=== PATIENT | male | born 2000 | race Caucasian/White ===

== ENCOUNTER 2025-05-08 12:17 | Emergency (ER) | payer OTHER, SELFPAY ==
--- NOTE | 2025-05-08 12:19 | ED_ITS ---
HPI - Eye Problem General Chief complaint: Eye Problems Stated complaint: LT Eye Problems Time Seen by Provider: 05/08/25 12:18 Source: patient Mode of arrival: ambulatory Limitations: no limitations History of Present Illness HPI Narrative: Wilfredo is a 25 year old male patient presenting to the clinic today with c/o left eye issues. He reports he felt as though he may have gotten an eyelash stuck in his eye this morning after he woke up. States he now was having some light sensitivity and tearing. Thinks he may have scratched his eye. Visual acuity 20/50 in the left and 20/20 in the right. Has not tried any treatments to alleviate his symptoms other than pulling at eye lashes Review of Systems Review of Systems: Pertinent positives per HPI. Patient denies any fever, chills, rash, headache, visual changes, dizziness, cough, runny nose, sore throat, shortness of breath, chest pain, palpitations, nausea, vomiting, diarrhea, constipation, abdominal pain, or any urinary issues. PMFSH Comments At the time of my signature, I reviewed and agree with the nursing past medical, surgical, social, and family history. There is no relevant family history pertinent to the patient complaint. Exam Narrative: General: Well-developed, well nourished, in no apparent distress Head: Normocephalic, atraumatic Eyes: Pupils equally round and reactive to light bilaterally, EOM intact, sclera and conjunctive clear, no discharge, left upper lid mildly swelling, no sign of stye, Wood's lamp exam was performed and shows no sign corneal abrasion, Baldemar sign, or foreign body in the left eye Ears: TMs intact and clear, ear canals clear, no drainage, grossly hearing normal. Nose: Nares patent, no discharge, no inflammation, no sinus tenderness. Mouth: Oropharynx without lesions or masses, good dentition, MMM. Neck: Supple, trachea midline, no enlargement of anterior or posterior cervical nodes, no thyroid masses or goiter palpable. Cardio: Regular rate and rhythm, s1 and s2 normal, no murmur appreciated. Resp: Clear to auscultation bilaterally anteriorly and posteriorly, no rhonchi, rales, wheezing or rubs Course Course Emergency Course: Portions of this record may have been created with voice recognition software. Level of Care: Express Care Visit Vital Signs Vital signs: Vital Signs Temperature 36.4 C L 05/08/25 12:28 Pulse Rate 60 05/08/25 12:28 Respiratory Rate 18 05/08/25 12:28 Blood Pressure 128/77 05/08/25 12:28 Pulse Oximetry 99 05/08/25 12:28 Oxygen Delivery Room Air 05/08/25 12:28 Temperature 36.4 C L 05/08/25 12:28 Pulse Rate 60 05/08/25 12:28 Respiratory Rate 18 05/08/25 12:28 Blood Pressure 128/77 05/08/25 12:28 Pulse Oximetry 99 05/08/25 12:28 Oxygen Delivery Room Air 05/08/25 12:28 Vital signs reviewed Procedures Other Procedure Procedure 1: Other Procedure: Two drops of topical tetracaine anesthetic was instilled with good anesthesia. Fluorescein stain of the left eye was performed without uptake of dye. No epithelial defect was noted. NO FB, ulcer or dendritic lesions. Upper lid was everted and no FB or lesions were noted. NO Baldemar sign. Normal saline irri gation eye solution was performed and the patient tolerated the procedure well, no adverse reaction or complications. MDM - Eye Problem MDM Narrative Medical decision making narrative: At the time of visit patient is resting comfortably on the exam table. Patient appears to be nontoxic. c/o left eye issues. He reports he felt as though he may have gotten an eyelash stuck in his eye this morning after he woke up. States he now was having some light sensitivity and tearing. Thinks he may have scratched his eye. Visual acuity 20/50 in the left and 20/20 in the right. Has not tried any treatments to alleviate his symptoms other than pulling at eye lashes. Wood's lamp eye exam ordered. Procedure: Wood's lamp exam was performed and shows no sign of corneal abrasion, no Baldemar sign, no visualized foreign body in the left eye Plan: I suspect patient has left eye irritation. Recommend artificial tears and using eye wash as needed. Patient's symptoms have resolved at this time after using the tetracaine. Supportive measures were discussed with the patient and they voiced understanding discharge instructions and agrees to treatment plan. Return precautions reviewed Differential Diagnosis Differential diagnosis: Likely corneal abrasion, conjunctivitis, acute iritis, hyphema, periorbital cellulitis, subconjunctival hemorrhage, glaucoma, corneal ulcer and ruptured globe Discharge Plan Discharge Clinical Impression: Corneal irritation of left eye, Foreign body sensation, left eye Patient Disposition: Home Condition: Stable Instructions: Antibiotic Form, Eye Pain (ED) Additional Instructions: Wood's lamp exam was performed and shows no sign of corneal abrasion in the clinic today. There is no sign of obvious infection or foreign body. May use eye wash irrigation to rinse the eye May apply cool compresses to help alleviate discomfort May use artificial tears as needed to moisturize the left eye May take Tylenol/Motrin as needed for pain Follow-up with your eye doctor in 2-3 days if symptoms persist or sooner if they worsen Patient Language: Moroccan Follow-up/Referrals: Jaime,Drew Severino MD [Primary Care Provider, Unknown] Time of Disposition: 12:45 Quality NIHSS Nursing Documentation ED NIHSS nursing documentation: reviewed/agree
[2025-05-08 12:28] VITALS: BP 128/77; PULSE 60; RESP 18; TEMP 36.4; O2SAT 99
[2025-05-08] MEDS: TETRACAINE HCL 0.5% OPHTH SOLN 4 ML BTL LEFT EYE (12:35)
[2025-05-08] MEDS: FLUORESCEIN SOD 1 MG/STRIP LEFT EYE (12:36)
[2025-05-08] MEDS: DACRIOSE EYE IRRIGATION 118 ML BOTTLE LEFT EYE (12:36)
== END 2025-05-08 12:50 | disposition home or self-care (01) ==
PROVIDERS: Emergency Provider Nurse Practitioner Family; PCP Family Medicine
DX: H18.892 Other specified disorders of cornea, left eye (principal); H57.8A2 Foreign body sensation, left eye; K21.9 Gastro-esophageal reflux disease without esophagitis
CPT/HCPCS: 99213; A9270; G0463